=== PATIENT | female | born 1985 | race Caucasian/White ===

== ENCOUNTER 2016-02-11 21:54 | Emergency (ER) | payer SELFPAY ==
[2016-02-11 23:25] LABS: Basophils % (Auto) 0.2 % (0.0-1.8); Eosinophils % (Auto) 1.1 % (0.0-4.3); Hematocrit 40.7 % (30.3-42.9); Hemoglobin 13.4 gm/dl (10.1-14.3); Mean Corpuscular HGB Conc 33 % (30-34); Mean Corpuscular Hemoglobin 31 pg (28-32); Mean Corpuscular Volume 93 fl (79-97); Platelet Count 290 K/mm3 (140-440); Red Blood Count 4.36 M/mm3 (3.65-5.03); Red Cell Distribution Width 13.5 % (13.2-15.2); White Blood Count 8.5 K/mm3 (4.5-11.0)
[2016-02-11 23:46] LABS: Alanine Aminotransferase 65 units/L (7-56); Albumin 4.1 g/dL (3.9-5); Albumin/Globulin Ratio 1.4 %; Alkaline Phosphatase 126 units/L (35-129); BUN/Creatinine Ratio 15.71; Bilirubin,Total 0.2 mg/dL (0.1-1.2); Blood Urea Nitrogen 11 mg/dL (7-17); Calcium 9.2 mg/dL (8.4-10.2); Carbon Dioxide 27 mmol/L (22-30); Chloride 99.8 mmol/L (98-107); Glucose 119 mg/dL (65-100); Lipase 50 units/L (13-60); Potassium 4.3 mmol/L (3.6-5.0); Sodium 138 mmol/L (137-145); Total Protein 7.1 g/dL (6.3-8.2)
[2016-02-11 23:53] LABS: Anion Gap 16 mmol/L
[2016-02-12 00:26] LABS: Bilirubin,Urine NEG (Negative); Blood,Urine LG (Negative); Ketones,Urine NEG (Negative); Leukocyte Esterase,Urine NEG (Negative); Nitrite,Urine NEG (Negative); Protein,Urine <15 mg/dL mg/dL (Negative); Urobilinogen,Urine < 2.0 mg/dL (<2.0)
[2016-02-12 00:39] VITALS: BP 162/91
[2016-02-12] MEDS ORDERED: ALUM-MAG HYDROX-SIMETH 200-200-20MG/5ML PO ONE (01:13)
[2016-02-12] MEDS ORDERED: MORPHINE IM ONE (01:13)
[2016-02-12] MEDS ORDERED: LIDOCAINE VISCOUS 2% PO ONE (01:13)
[2016-02-12] MEDS ORDERED: PEPCID PO ONE (01:13)
[2016-02-12] MEDS ORDERED: ZOFRAN ODT PO ONE (01:13)
--- NOTE | 2016-02-12 01:18 | Emergency Department Report ---
HPI - General Chief Complaint: Abdominal Pain Time Seen by Provider: 02/12/16 01:03 - HPI HPI: The patient is a 30-year-old female who presents for evaluation of abdominal pain. The patient reports abdominal pain since 7:30 PM, approximately 4-5 hours prior to my evaluation. She says abdominal pain has been constant since onset, epigastric in location, burning in quality, moderate to severe, and associated with nausea without emesis. The patient denies fever, chills, night sweats, diarrhea, blood in the stool, dark tarry stool, dysuria, hematuria, flank pain, genital discharge, inability to pass flatus. ED Past Medical Hx - Past Medical History Previous Medical History?: No Hx Hypertension: No Hx Diabetes: No Hx Deep Vein Thrombosis: No Hx Renal Disease: No Hx Sickle Cell Disease: No Hx Seizures: No Hx Asthma: No Hx HIV: No - Surgical History Past Surgical History?: Yes Additional Surgical History: C-Sec x 2 - Social History Smoking Status: Never Smoker Substance Use Type: None - Medications Home Medications: Home Medications Medication Instructions Recorded Confirmed Last Taken Type Ferrous Sulfate [Feosol 325 MG tab] 325 mg PO BID #60 tablet 05/29/15 Unknown Rx Ibuprofen [Motrin 800 MG tab] 800 mg PO Q8HR PRN #60 tablet 05/29/15 Unknown Rx HYDROcodone/APAP 7.5-325 [[place] 1 each PO Q8HR PRN #10 tablet 02/12/16 Unknown Rx 7.5-325 mg TAB] Omeprazole Magnesium [PriLOSEC Otc] 20 mg PO QDAY #14 tablet. 02/12/16 Unknown Rx Ondansetron [Zofran TAB] 4 mg PO Q8HR PRN #14 tablet 02/12/16 Unknown Rx ED Review of Systems ROS: Stated complaint: ABD PAIN Other details as noted in HPI Constitutional: denies: fever ENT: denies: throat or neck pain Respiratory: denies: cough, shortness of breath Cardiovascular: denies: chest pain Endocrine: denies unexplained weight loss or gain Gastrointestinal: reports abdominal pain, nausea Genitourinary: denies: dysuria Musculoskeletal: denies: leg swelling Skin: denies: rash Neurological: denies: headache Hematological/Lymphatic: denies: easy bleeding or easy bruising Psych: denies sadness or hopelessness Physical Exam - Physical Exam Vital Signs: Vital Signs 02/11/16 02/12/16 22:36 00:38 Temperature 98.8 F 99.3 F Pulse Rate 78 61 Respiratory 20 18 Rate Blood Pressure 155/96 Blood Pressure 162/91 [Right] O2 Sat by Pulse 100 99 Oximetry Physical Exam: General: well-nourished, well-developed, no acute distress Head: Normocephalic, atraumatic Eyes: normal sclera ENT: Mucous membranes are pink and moist Neck: trachea midline, neck supple, No neck stiffness, no cervical adenopathy Respiratory: Breath sounds equal bilaterally, no wheezing, rales, or rhonchi Cardio: S1 and S2 present, no murmurs, rubs, gallops, capillary refill is brisk Abdomen: Normoactive bowel sounds, soft abdomen, epigastric tenderness to palpation present, no rigidity, no guarding or rebound tenderness Chest WALL/Back: No tenderness to palpation of the chest wall, no CVA tenderness with percussion Musc: No pitting edema Skin: No rash Neuro: no facial drooping, normal speech Psych: Normal affect ED Course Vital Signs 02/11/16 02/12/16 22:36 00:38 Temperature 98.8 F 99.3 F Pulse Rate 78 61 Respiratory 20 18 Rate Blood Pressure 155/96 Blood Pressure 162/91 [Right] O2 Sat by Pulse 100 99 Oximetry ED Medical Decision Making - Lab Data Result diagrams: 02/11/16 23:02 02/11/16 23:02 - Medical Decision Making The patient was seen and examined by myself. The patient is placed on a exercise rider and continuous pulse ox. On initial evaluation, the patient was found to be in no distress. Evaluation orders are placed. The patient is given a GI cocktail, a tablet of Protonix, and an IM dose of morphine for her pain. Lab results were non-concerning including WBC, hemoglobin, hematocrit, electrolytes, renal function, LFTs, lipase, neg preg test, and urinalysis. The patient was reevaluated and reported that their symptoms were markedly improved. The patient is stable for discharge with outpatient follow-up. The patient is given follow-up and return instructions. The patient expressed understanding and agreed with the plan. The patient is discharged in stable condition. Critical care attestation.: If time is entered above; I have spent that time in minutes in the direct care of this critically ill patient, excluding procedure time. ED Disposition Clinical Impression: Abdominal pain, acute, epigastric Disposition: DISCHARGED TO HOME OR SELFCARE Is pt being admited?: No Does the pt Need Aspirin: No Condition: Stable Instructions: Abdominal Pain (ED), Gastritis (ED), Peptic Ulcer (ED), Diet for Ulcers and Gastritis (ED) Referrals: PRIMARY CARE, [Primary Care Provider] - 3-5 Days Time of Disposition: 01:17
== END 2016-02-12 01:30 | disposition home or self-care (01) ==
LOC: ED 21:54
DX: R10.13 Epigastric pain (principal)
CPT/HCPCS: 36415; 80053; 81001; 83690; 84703; 85025; 96372; 99284; J2270; Q0162

== ENCOUNTER 2017-06-22 13:06 | Inpatient (IN) | payer OTHER ==
--- NOTE | 2017-06-22 14:31 | History and Physical Report ---
History of Present Illness Date of examination: 06/22/17 Date of admission: 06/22/2017 Chief complaint: I'm having contractions History of present illness: Patient is a 31 year old polish only speaking female who presents today with complaint of pain and contractions at approximately 38 weeks gestation. Patient has had no care stating that she was unable to afford it. Patient has 2 previous c-sections. There are obviously no records available for review. Patient got her EDC when she had a private pay gender ultrasound. Her EDC corresponds to her last known LMP of 09/27/16. Past History Past Medical History: no pertinent history Past Surgical History: section (x2) - Obstetrical History Expected Date of Delivery: 07/04/17 Actual Gestation: 38 Week(s) 2 Day(s) : 4 Medications and Allergies Allergies Allergy/AdvReac Type Severity Reaction Status Date / Time No Known Allergies Allergy Verified 05/27/15 20:44 Home Medications Medication Instructions Recorded Confirmed Last Taken Type Ferrous Sulfate [Feosol 325 MG tab] 325 mg PO BID #60 tablet 05/29/15 Unknown Rx Ibuprofen [Motrin 800 MG tab] 800 mg PO Q8HR PRN #60 tablet 05/29/15 Unknown Rx HYDROcodone/APAP 7.5-325 [[place] 1 each PO Q8HR PRN #10 tablet 02/12/16 Unknown Rx 7.5-325 mg TAB] Omeprazole Magnesium [PriLOSEC Otc] 20 mg PO QDAY #14 tablet. 02/12/16 Unknown Rx Ondansetron [Zofran TAB] 4 mg PO Q8HR PRN #14 tablet 02/12/16 Unknown Rx Review of Systems All systems: negative Genitourinary: pelvic pain - Vital Signs Vital signs: Vital Signs Pulse BP 94 H 127/80 06/22/17 13:48 06/22/17 13:48 Temp Pulse Resp BP Pulse Ox 87 20 127/80 97 06/22/17 14:29 06/22/17 13:51 06/22/17 13:51 06/22/17 14:29 - Physical Exam Breasts: Positive: deferred Cardiovascular: Regular rate, Normal S1, Normal S2 Lungs: Positive: Clear to auscultation, Normal air movement Abdomen: Positive: normal appearance, soft, normal bowel sounds. Negative: distention, tenderness Vulva: both: normal Vagina: Positive: normal moisture. Negative: discharge Cervix: Negative: lesion, discharge Uterus: Positive: normal size (consistent with 38 weeks), normal contour Adnexa: both: normal Anus/Rectum: Positive: normal perianal skin, heme negative. Negative: rectal mass, hemorrhoids Extremities: Deep Tendon Reflex Grade: Normal +2 - Obstetrical Cervical Dilatation: 3.5 Cervical Effacement Percentage: 70 Uterine Contraction Pattern: Regular Uterine Tone Measurement Phase: Resting Uterine Contraction Intensity: Moderate Results All other labs normal. Assessment and Plan IUP at term with no care but with history of x2, in active labor. Admit for labor. Anticipate .
[2017-06-22] MEDS ORDERED: BICITRA PO ONE (15:00)
[2017-06-22] MEDS ORDERED: ANCEF/STERILE WATER 2 GM/20 ML 2 GM/20 ML SYRINGE IV NR (15:00)
[2017-06-22] MEDS ORDERED: LACTATED RINGERS 1,000 ML IV SCH (15:00)
[2017-06-22] MEDS ORDERED: REGLAN IV ONE (15:00)
[2017-06-22] MEDS ORDERED: PEPCID IV ONE (15:00)
[2017-06-22] MEDS ORDERED: PITOCin/NS 20 UNIT/1000ML DRIP 20 UNITS/1,000 ML BAG IV SCH ×2 (15:00→21:08)
[2017-06-22 15:21] LABS: Hematocrit 39.8 % (30.3-42.9); Hemoglobin 13.2 gm/dl (10.1-14.3); Mean Corpuscular HGB Conc 33 % (30-34); Mean Corpuscular Hemoglobin 31 pg (28-32); Mean Corpuscular Volume 94 fl (79-97); Red Blood Count 4.23 M/mm3 (3.65-5.03); Red Cell Distribution Width 13.9 % (13.2-15.2)
[2017-06-22 15:22] LABS: Basophils % (Auto) 0.2 % (0.0-1.8); Eosinophils # (Auto) 0.1 K/mm3 (0.0-0.4); Eosinophils % (Auto) 0.9 % (0.0-4.3); Lymphocytes # (Auto) 1.5 K/mm3 (1.2-5.4); Lymphocytes % (Auto) 18.6 % (13.4-35.0); Mean Platelet Volume 9.4 fl (6-12); Monocytes # (Auto) 0.5 K/mm3 (0.0-0.8); Monocytes % (Auto) 6.2 % (0.0-7.3); Platelet Count 245 K/mm3 (140-440)
[2017-06-22] MEDS ORDERED: NEO SYNEPHRINE/NS Syringe(OR USE) IV ONE (16:20)
[2017-06-22] MEDS ORDERED: SUBLIMAZE ONE (16:20)
[2017-06-22] MEDS ORDERED: ANCEF/STERILE WATER 2 GM/20 ML IV ONE (16:50)
[2017-06-22] MEDS ORDERED: LACTATED RINGERS 1,000 ML ONE (16:56)
[2017-06-22] MEDS ORDERED: ZOFRAN ONE (16:56)
[2017-06-22] MEDS ORDERED: WATER FOR IRRIG STERILE IR ONE (17:00)
[2017-06-22] MEDS ORDERED: NACL 0.9% IR ONE (17:00)
--- NOTE | 2017-06-22 17:50 | Procedure Note ---
OB Delivery Note - Delivery Date of Delivery: 06/22/17 Surgeon: DOREEN CONNOR Estimated blood loss: other (600) - Section Preop diagnosis: repeat , other (lack of care) Postop diagnosis: same section procedure: repeat low transverse Complications: none - A at 1 minute: 9 at 5 minutes: 9 Infant Gender: Male (7 pounds 4 ounces 3296 grams)
[2017-06-22 20:02] LABS: Amphetamine Screen,Urine PRESUMPTIVE NEGATIVE; Benzodiazepines Screen,Urine PRESUMPTIVE NEGATIVE; Cannabinoid Screen,Urine PRESUMPTIVE NEGATIVE; Cocaine Screen,Urine PRESUMPTIVE NEGATIVE; Methadone Screen,Urine PRESUMPTIVE NEGATIVE; Opiate Screen,Urine PRESUMPTIVE NEGATIVE
[2017-06-22] MEDS ORDERED: ZOFRAN IV PRN (21:08)
[2017-06-22] MEDS ORDERED: D5LR 1,000 ML IV SCH (21:08)
[2017-06-22] MEDS ORDERED: LANSINOH TP PRN (21:08)
[2017-06-22] MEDS ORDERED: MYLICON PO PRN (21:08)
[2017-06-22] MEDS ORDERED: NARCAN 0.4 MG/1 ML IV PRN (21:08)
[2017-06-22] MEDS ORDERED: MORPHINE IV PRN (21:08)
[2017-06-22] MEDS ORDERED: TUCKS PAD TP PRN (21:08)
[2017-06-22] MEDS ORDERED: SODIUM CHLORIDE FLUSH SYRINGE 10 ML IV NR (21:08)
[2017-06-22] MEDS: TORADOL IV PRN (21:35)
[2017-06-23] MEDS: TORADOL IV PRN (02:36)
[2017-06-23] MEDS: PERCOCET 5/325 PO PRN ×4 (04:24→21:12)
[2017-06-23 06:20] LABS: Hematocrit 32.5 % (30.3-42.9); Hemoglobin 11.4 gm/dl (10.1-14.3)
[2017-06-23 06:49] LABS: Hepatitis A Antibody IgM Non-Reactive (NonReactive); Hepatitis B Core IgM Non-Reactive (NonReactive); Hepatitis B Surface Antigen Non-Reactive (Negative); Hepatitis C Virus Antibody Non-Reactive (NonReactive)
[2017-06-23] MEDS: PRENATAL VITAMIN PO SCH (10:02)
[2017-06-23] MEDS: FEOSOL PO SCH (10:02)
[2017-06-23] MEDS: MOTRIN PO PRN ×2 (14:54→21:12)
[2017-06-23] MEDS ORDERED: M-M-R II VACCINE SUB-Q ONE (17:46)
[2017-06-24] MEDS: MOTRIN PO PRN ×2 (04:10→11:09)
[2017-06-24] MEDS: PERCOCET 5/325 PO PRN ×4 (04:11→19:10)
[2017-06-24] MEDS ORDERED: BOOSTRIX IM ONE (06:00)
[2017-06-24] MEDS: FEOSOL PO SCH (10:45)
[2017-06-24] MEDS: PRENATAL VITAMIN PO SCH (10:45)
[2017-06-25] MEDS: PERCOCET 5/325 PO PRN ×2 (00:45→08:43)
--- NOTE | 2017-06-25 07:57 | Progress Note ---
Assessment and Plan POD 3 s/p rltcs with no care. Doing well. Plan for discharge on today Subjective - Subjective Date of service: 06/25/17 Interval history: Patient is a 31 year old [place] only speaking female who presents today with complaint of pain and contractions at approximately 38 weeks gestation. Patient has had no care stating that she was unable to afford it. Patient has 2 previous c-sections. There are obviously no records available for review. Patient got her EDC when she had a private pay gender ultrasound. Her EDC corresponds to her last known LMP of 09/27/16. Patient reports: appetite normal, voiding normally, pain well controlled, ambulating normally : doing well Objective - Vital Signs Latest vital signs: Vital Signs Temp Pulse Resp BP BP Pulse Ox 06/25/17 00:00 98.6 F 69 18 129/82 06/24/17 16:35 97.7 F 57 L 20 115/75 96 Intake and Output 06/24/17 06/25/17 06/25/17 22:59 06:59 14:59 Intake Total 240 500 Balance 240 500 Intake: Oral 240 200 Intake, Free Water 300 Other: Total, Intake Amount 240 200 # Voids Void 1 - Exam Breasts: Present: deferred Cardiovascular: Present: Regular rate, Normal S1, Normal S2 Lungs: Present: Clear to auscultation, Normal air movement Abdomen: Present: normal appearance, soft, normal bowel sounds Vulva: both: normal Uterus: Present: normal, firm Extremities: Present: normal Incision: Present: normal, dry, intact
--- NOTE | 2017-06-25 08:01 | Discharge Summary ---
Providers - Providers Date of Admission: 06/22/17 14:29 Date of discharge: 06/25/17 Attending physician: DOREEN CONNOR Primary care physician: [employer] Hospitalization Reason for admission: active labor, section Delivery: Procedure: repeat low transverse Procedure details: see op report Incision: normal, dry, intact Other procedures: none complications: none Discharge diagnosis: IUP at term delivered [place] baby: male Hospital course: unremarkable Condition at discharge: Good Disposition: DC-01 TO HOME OR SELFCARE Plan - Discharge Medications Prescriptions: Ibuprofen [Motrin 800 MG tab] 800 mg PO Q6H PRN #40 tablet PRN Reason: Pain, Mild (1-3) oxyCODONE /ACETAMINOPHEN [Percocet 5/325 mg] 2 tab PO Q4H PRN #40 tablet PRN Reason: Pain, Moderate (4-6) Vit-Fe Fumar-FA [ Vitamin] 1 each PO QDAY #60 tablet - Provider Discharge Summary Activity: routine, no sex for 6 weeks, no heavy lifting 4 weeks, no strenuous exercise Diet: routine Instructions: routine Additional instructions: [] Smoking cessation referral if applicable(refer to patient education folder for contact #) [] Refer to [facility] Booklet Call your doctor immediately for: * Fever > 100.5 * Heavy vaginal bleeding ( >1 pad per hour) * Severe persistent headache * Shortness of breath * Reddened, hot, painful area to leg or breast * Drainage or odor from incision. * Keep incision clean and dry at all times and follow doctor's instructions regarding bathing/showering - Follow up plan Follow up: DOREEN CONNOR MD [Staff Physician] - 14 Days Forms: [facility] Discharge Summary
[2017-06-25] MEDS: FEOSOL PO SCH (09:13)
[2017-06-25] MEDS: PRENATAL VITAMIN PO SCH (09:13)
[2017-06-25 10:20] VITALS: BP 143/86
== END 2017-06-25 09:50 | disposition home or self-care (01) | DRG 766 ==
LOC: TRG 13:06 → APU 14:29 → OB 20:02
PROVIDERS: ADMIT Obstetrics & Gynecology; ATTEND Obstetrics & Gynecology
PROC: 10D00Z1 Extraction of Products of Conception, Low, Open Approach (ICD-10-PCS; principal; 2017-06-22)
PROC: 3E0234Z Introduction of Serum, Toxoid and Vaccine into Muscle, Percutaneous Approach (ICD-10-PCS; 2017-06-24)
DX: O34.211 Maternal care for low transverse scar from previous cesarean delivery (principal); Z3A.38 38 weeks gestation of pregnancy; Z37.0 Single live birth; Z79.899 Other long term (current) drug therapy; Z23 Encounter for immunization
CPT/HCPCS: 36415; 80074; 80307; 85014; 85018; 85025; 86592; 86762; 86850; 86900; 86901; 87806; 90471; 90715; 99211; G0463; J0690; J1885; J2270; J2370; J2405; J2590; J2765; J3010; J7120; J7121

== ENCOUNTER 2019-03-17 15:53 | Emergency (ER) | payer OTHER, MEDICAID ==
[2019-03-17 17:36] VITALS: BP 173/103
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
== END 2019-03-17 22:14 | disposition home or self-care (01) ==
LOC: ED 15:53
DX: S46.812A Strain of other muscles, fascia and tendons at shoulder and upper arm level, left arm, initial encounter (principal); S39.012A Strain of muscle, fascia and tendon of lower back, initial encounter; M54.2 Cervicalgia; Z79.899 Other long term (current) drug therapy; V43.62XA Car passenger injured in collision with other type car in traffic accident, initial encounter; Y93.89 Activity, other specified; Y92.410 Unspecified street and highway as the place of occurrence of the external cause; Y99.8 Other external cause status
CPT/HCPCS: 99282